=== PATIENT | male | born 1975 | race Caucasian/White ===

== ENCOUNTER 2019-08-16 18:03 | Emergency (ER) | payer BC ==
[2019-08-16] MEDS ORDERED: Tetracaine 0.5% OPTH.SOL 4 ML* 1 DROP BTL LEFT EYE ONE (18:13)
[2019-08-16] MEDS ORDERED: Fluorescein Sodium TOPICAL* 1 MG TEST STRIP OPHTHALMIC ONE (18:13)
--- NOTE | 2019-08-16 18:22 | ED ---
Throat Pain/Nasal Congestion - HPI Summary HPI Summary: 43 y/o male presented to [facility] for suspected metal in left eye. 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 He experienced pain yesterday that worsened today. He was seen at urgent care, where they flushed his eye out and attempted to find and remove the piece of metal but could not. Urgent care then referred him to the ED. - History of Current Complaint Chief Complaint: EDEyeProblem Time Seen by Provider: 08/16/19 18:12 Hx Obtained From: Patient Onset/Duration: Still Present Severity: Moderate Associated Signs And Symptoms: Positive: Negative Cough: None - Allergies/Home Medications Allergies/Adverse Reactions: Allergies Allergy/AdvReac Type Severity Reaction Status Date / Time No Known Allergies Allergy Verified 08/16/19 18:07 Home Medications: Home Medications Erythromycin OPTH OINT* [Erythromycin 0.5% OPTH OINT*] 1 applic LEFT EYE TID 3 Days #1 ophth.oint 08/16/19 [Rx] Lisinopril/Hydrochlorothiazide [Lisinopril-Hctz 20-12.5 mg Tab] 1 tab PO DAILY 08/16/19 [History Confirmed 08/16/19] PMH/Surg Hx/FS Hx/Imm Hx Sensory History: Denies: Hx Legally Blind, Hx Deafness Opthamlomology History: Denies: Hx Legally Blind EENT History: Denies: Hx Deafness Infectious Disease History: No Infectious Disease History: Denies: Traveled Outside the [place] in Last 30 Days - Family History Known Family History: Positive: Diabetes Negative: Hypertension - Social History Occupation: Employed Full-time Lives: With Family Alcohol Use: Rare Hx Substance Use: No Hx Tobacco Use: Yes Type: Cigarettes Review of Systems Negative: Fever - vitals show temp at 97.1F Positive: Other - pain in left eye All Other Systems Reviewed And Are Negative: Yes Physical Exam - Summary Physical Exam Summary: Constitutional: Well-developed, Well-nourished, Alert. (-) Distressed Skin: Warm, Dry HENT: Normocephalic; Atraumatic Eyes: Conjunctiva normal, Small (1mm) ulcerated area/dye uptake noted over left pupil Neck: Musculoskeletal ROM normal neck. (-) JVD, (-) Stridor, (-) Tracheal deviation Cardio: Rhythm regular, rate normal, Heart sounds normal; Intact distal pulses; The pedal pulses are 2+ and symmetric. Radial pulses are 2+ and symmetric. (-) Murmur Pulmonary/Chest wall: Effort normal. (-) Respiratory distress, (-) Wheezes, (-) Rales Abd: Soft, (-) tenderness, (-) Distension, (-) Guarding, (-) Rebound Musculoskeletal: (-) Edema Lymph: (-) Cervical adenopathy Neuro: Alert, Oriented x3 Psych: Mood and affect Normal Mccord lamp exam: very small (sub-mm) black speck removed with Q-tip; possible rust ring present Triage Information Reviewed: Yes Vital Signs On Initial Exam: Initial Vitals Temp Pulse Resp BP Pulse Ox 97.1 F 75 19 164/99 100 08/16/19 18:05 08/16/19 18:05 08/16/19 18:05 08/16/19 18:05 08/16/19 18:05 Vital Signs Reviewed: Yes Procedures - Sedation Patient Received Moderate/Deep Sedation with Procedure: No Diagnostics - Vital Signs Vital Signs Temp Pulse Resp BP Pulse Ox 08/16/19 18:05 97.1 F 75 19 164/99 100 - Laboratory Lab Statement: Any lab studies that have been ordered have been reviewed, and results considered in the medical decision making process. EENT Course/Dx - Course Course Of Treatment: 43 y/o male presented to [facility] for suspected metal in left eye. 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 He experienced pain yesterday that worsened today. He was seen at urgent care, where they flushed his eye out and attempted to find and remove the piece of metal but could not. Urgent care then referred him to the ED. Exam showed Small (1mm) ulcerated area/dye uptake noted over left pupil and very small (sub-mm) black speck. Possible rust ring present. Pt was given 1mg ophthalmic Ful-Argelia and 1 drop Tetracaine. Pt was diagnosed with foreign body in left eye and adin ulceration, prescribed Erythromycin ophthalmic ointment, and discharged to home. - Diagnoses Provider Diagnoses: Foreign body of left eye, Corneal ulceration Discharge ED - Sign-Out/Discharge Documenting (check all that apply): Patient Departure - dc - Discharge Plan Condition: Stable Disposition: HOME Prescriptions: Erythromycin OPTH OINT* [Erythromycin 0.5% OPTH OINT*] 1 applic LEFT EYE TID 3 Days #1 ophth.oint Patient Education Materials: Eye Foreign Body (ED) Referrals: Gerald Friedman MD [Medical Doctor] - Additional Instructions: Follow up with Dr. Friedman in 2-3 days. If you experience new or worsening symptoms please return to the ER. - Billing Disposition and Condition Condition: STABLE Disposition: Home - Attestation Statements Document Initiated by Victor Mibe: Yes Documenting Scribe: Aiden Zaidi Provider For Whom Julio is Documenting (Include Credential): Peter Kelley DO Scribe Attestation: Aiden Randhawa scribed for Peter Kelley DO on 08/16/19 at 2020. Scribe Documentation Reviewed: Yes Provider Attestation: The documentation as recorded by the Aiden romo accurately reflects the service I personally performed and the decisions made by Peter lindquist DO Status of Scrlaura Document: Viewed
[2019-08-16 19:02] VITALS: BP 142/74
[2019-08-16] MEDS ORDERED: Erythromycin OPTH OINT* APPLIC OINT LEFT EYE SCH (21:00)
== END 2019-08-16 19:01 | disposition home or self-care (01) ==
LOC: ED 18:03
DX: T15.92XA Foreign body on external eye, part unspecified, left eye, initial encounter (principal); H16.002 Unspecified corneal ulcer, left eye; X58.XXXA Exposure to other specified factors, initial encounter; Y93.89 Activity, other specified; Y92.79 Other farm location as the place of occurrence of the external cause; Y99.0 Civilian activity done for income or pay
CPT/HCPCS: 99282; A9270-GY